=== PATIENT | male | born 1955 | race Caucasian/White ===

== ENCOUNTER 2018-06-16 05:55 | Emergency (ER) | payer OTHER ==
[~2018-06-16] VITALS: Ht 180.3 cm; Wt 111.1 kg
[~2018-06-16 05:55] MED LIST: CETI10TA84 PO; GLC500 PO; LISI-725 PO; OXYC-57 PO
[2018-06-16 05:59] VITALS: TEMP 36.7; Ht 180.3 cm; Wt 111.1 kg
[2018-06-16] MEDS ORDERED: ONDANSETRON INJ 2 MG/ML 2 ML VIAL IV STA (06:12)
[2018-06-16] MEDS ORDERED: FENTANYL CITRATE INJ 50 MCG/1 ML 2 ML VIAL IV STA (06:12)
[2018-06-16] MEDS ORDERED: SODIUM CHLORIDE 0.9% 1000ML 1,000 ML IV STA ×2 (06:12)
[2018-06-16] MEDS ORDERED: LISI40TA PO (06:19)
[2018-06-16] MEDS ORDERED: ATOR-22 PO (06:19)
[2018-06-16] MEDS ORDERED: GLC/500 PO (06:19)
[2018-06-16] MEDS ORDERED: AMLO10TA3 PO (06:19)
[2018-06-16 06:20] LABS: BASO % 0.2 %; BASO ABS # 0.03 K/uL (0-0.2); EOS % 2.3 %; EOS ABS # 0.33 K/uL (0-0.5); HEMATOCRIT 44.3 % (42-52); HEMOGLOBIN 15.3 g/dL (14.0-18.0); IG# 0.05 K/uL (0.00-0.02); LYMPH % 21.8 %; LYMPH ABS # 3.11 K/uL (1.2-3.4); MEAN CELL VOLUME 83.7 fL (80-100); MEAN CORPUSCULAR HEMOGLOBIN 28.9 pg (25-34); MEAN CORPUSCULAR HGB CONC 34.5 g/dl (32-36); MEAN PLATELET VOLUME 11.2 fL (7.4-10.4); MONO % 6.7 %; MONO ABS # 0.96 K/uL (0.11-0.59); NEUT % 68.6 %; NEUT ABS # 9.79 K/uL (1.4-6.5); PLATELET COUNT 223 K/uL (130-400); RED CELL DISTRIBUTION WIDTH CV 13.3 % (11.5-14.5); RED CELL DISTRIBUTION WIDTH SD 39.9 fL (36.4-46.3); WHITE BLOOD COUNT 14.27 K/uL (4.8-10.8)
[2018-06-16] MEDS ORDERED: DULA1INJ INJ (06:20)
--- NOTE | 2018-06-16 06:25 | EMERGENCY ROOM VISIT NOTE ---
History Report prepared by Leo: Tavares Nicole Under the Supervision of: Dr. Erum Smith D.O. First contact with patient: 06:03 Chief Complaint: VOMITING Stated Complaint: VOMITING FOR 6DYS History of Present Illness The patient is a 63 year old male who presents to the Emergency Room with complaints of persistent vomiting that began last , 4 days ago. The patient states that his sugars were uncontrolled last week, so he received a shot of Trulicity from his primary care office on Friday of last week. morning at 0100 the patient began vomiting. The patient's at bedside notes that on Friday, 3 days ago, his vomiting was nearly constant and he did not keep anything down. He is also complaining of upper abdominal pain and sweats/chills along with the emesis. He denies any diarrhea or urinary issues. 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 The patient has a history of cholecystectomy. Source of History: patient Onset: 4 days ago Position: abdomen Quality: other (Vomiting) Timing: other (persistent) Associated Symptoms: No diarrhea, No urinary symptoms Review of Systems See HPI for pertinent positives & negatives. A total of 10 systems reviewed and were otherwise negative. Past Medical & Surgical Hx of Alcoholic Cirrhosis, Hepatitis C, and Kidney mass. Family History Cancer Social History Smoking Status: Former Smoker Alcohol Use: other (Former alcoholic) Marital Status: Housing Status: lives with significant other Current/Historical Medications Scheduled Amlodipine (Norvasc), 10 MG PO DAILY Atorvastatin (Lipitor), 20 MG PO DAILY Dulaglutide (Trulicity), 0.75 MG INJ WK Lisinopril (Zestril), 40 MG PO DAILY Metformin Hcl (Glucophage), 500 MG PO BID Ondasetron Odt (Zofran Odt), 4 MG SL Q6H Ranitidine Hcl (Zantac), 150 MG PO BID Allergies Coded Allergies: No Known Allergies (Verified , 06/16/18) Physical Exam Vital Signs Date Time Temp Pulse Resp B/P (MAP) Pulse Ox O2 Delivery O2 Flow Rate FiO2 06/16/18 08:12 79 17 151/90 96 06/16/18 07:24 79 17 151/90 96 Room Air 06/16/18 06:20 70 18 174/112 94 Room Air 06/16/18 06:10 98 06/16/18 05:59 36.7 117 18 151/102 94 Room Air Physical Exam General: Patient appears quite uncomfortable at this time. HEENT: Head - normocephalic and atraumatic Pupils are equal, round, and reactive to light. Extraocular eye muscles are intact, and sclera are anicteric. Nose - moist nasal mucosa without discharge. Mouth - moist buccal mucosa. Oropharynx is nonerythematous and there is no tonsillar exudate or edema noted. Neck: Supple; no JVD, nuchal rigidity, cervical lymphadenopathy. Heart: Tachycardic rate and regular rhythm. There is a normal S1 and S2 with no murmurs, clicks, or gallops appreciated. Lungs: Clear to auscultation bilaterally with no wheezes, rales, or rhonchi. Abdomen: Soft, with pain on palpation of epigastrium and LUQ, distended, with good bowel sounds. There are no palpable pulsatile masses or hepatosplenomegaly. There is no guarding, rigidity, or rebound noted. Extremities: No evidence of cyanosis, clubbing, or edema. There are easily palpable peripheral pulses. Skin: warm and dry with good turgor and no rashes. Medical Decision & Procedures Laboratory Results 06/16/18 06:05 Red Blood Count 5.29, Mean Corpuscular Volume 83.7, Mean Corpuscular Hemoglobin 28.9, Mean Corpuscular Hemoglobin Concent 34.5, Mean Platelet Volume 11.2, Neutrophils (%) (Auto) 68.6, Lymphocytes (%) (Auto) 21.8, Monocytes (%) (Auto) 6.7, Eosinophils (%) (Auto) 2.3, Basophils (%) (Auto) 0.2, Neutrophils # (Auto) 9.79, Lymphocytes # (Auto) 3.11, Monocytes # (Auto) 0.96, Eosinophils # (Auto) 0.33, Basophils # (Auto) 0.03 06/16/18 06:05 Test 06/16/18 06:05 06/16/18 06:15 White Blood Count 14.27 K/uL (4.8-10.8) Red Blood Count 5.29 M/uL (4.7-6.1) Hemoglobin 15.3 g/dL (14.0-18.0) Hematocrit 44.3 % (42-52) Mean Corpuscular Volume 83.7 fL (80-100) Mean Corpuscular Hemoglobin 28.9 pg (25-34) Mean Corpuscular Hemoglobin Concent 34.5 g/dl (32-36) Platelet Count 223 K/uL (130-400) Mean Platelet Volume 11.2 fL (7.4-10.4) Neutrophils (%) (Auto) 68.6 % Lymphocytes (%) (Auto) 21.8 % Monocytes (%) (Auto) 6.7 % Eosinophils (%) (Auto) 2.3 % Basophils (%) (Auto) 0.2 % Neutrophils # (Auto) 9.79 K/uL (1.4-6.5) Lymphocytes # (Auto) 3.11 K/uL (1.2-3.4) Monocytes # (Auto) 0.96 K/uL (0.11-0.59) Eosinophils # (Auto) 0.33 K/uL (0-0.5) Basophils # (Auto) 0.03 K/uL (0-0.2) RDW Standard Deviation 39.9 fL (36.4-46.3) RDW Coefficient of Variation 13.3 % (11.5-14.5) Immature Granulocyte % (Auto) 0.4 % Immature Granulocyte # (Auto) 0.05 K/uL (0.00-0.02) Prothrombin Time 10.2 SECONDS (9.0-12.0) Prothromb Time International Ratio 1.0 (0.9-1.1) Activated Partial Thromboplast Time 23.3 SECONDS (21.0-31.0) Partial Thromboplastin Ratio 0.9 Anion Gap 10.0 mmol/L (3-11) Est Creatinine Clear Calc Drug Dose 88.2 ml/min Estimated GFR () 82.9 Estimated GFR (Non- 71.6 BUN/Creatinine Ratio 14.5 (10-20) Calcium Level 8.6 mg/dl (8.5-10.1) Total Bilirubin 1.2 mg/dl (0.2-1) Direct Bilirubin 0.3 mg/dl (0-0.2) Aspartate Amino Transf (AST/SGOT) 25 U/L (15-37) Alanine Aminotransferase (ALT/SGPT) 48 U/L (12-78) Alkaline Phosphatase 128 U/L (45-117) Total Protein 8.4 gm/dl (6.4-8.2) Albumin 3.4 gm/dl (3.4-5.0) Lipase 158 U/L (73-393) Urine Color YELLOW Urine Appearance CLEAR (CLEAR) Urine pH 5.5 (4.5-7.5) Urine Specific [place] 1.020 (1.000-1.030) Urine Protein TRACE (NEG) Urine Glucose (UA) 1+ (NEG) Urine Ketones TRACE (NEG) Urine Occult Blood NEG (NEG) Urine Nitrite NEG (NEG) Urine Bilirubin NEG (NEG) Urine Urobilinogen NEG (NEG) Urine Leukocyte Esterase NEG (NEG) Urine RBC 0-4 /hpf (0-4) Urine WBC 1-5 /hpf (0-5) Urine Epithelial Cells 0-5 /lpf (0-5) Urine Bacteria NEG (NEG) Urine Mucus PRESENT (NONE PRSENT) Urine Sperm PRESENT (NONE PRSENT) Laboratory results per my review. Medications Administered Medications (Trade) Dose Ordered Sig/Prabhjot Route Start Time Stop Time Status Last Admin Dose Admin Ondansetron HCl (Zofran Inj) 4 mg NOW STAT IV 06/16/18 06:12 06/16/18 06:14 DC 06/16/18 06:18 4 MG Sodium Chloride 1,000 ml @ 999 mls/hr Q1H1M STAT IV 06/16/18 06:12 06/16/18 07:12 DC 06/16/18 06:21 999 MLS/HR Sodium Chloride 1,000 ml @ 250 mls/hr Q4H STAT IV 06/16/18 06:12 06/16/18 09:25 DC 06/16/18 07:33 250 MLS/HR Fentanyl Citrate (Fentanyl Inj) 50 mcg NOW STAT IV 06/16/18 06:12 06/16/18 06:14 DC 06/16/18 06:21 50 MCG Procedure Medications Ordered: Fentanyl, Sodium Chloride, Zofran ECG Per My Interpretation Indication: vomiting Rate (beats per minute): 81 Rhythm: normal sinus Findings: no acute ischemic change, no ectopy, other (No ST segment changes) ED Course 0606: Past medical records reviewed. The patient was evaluated in room A10. A complete history and physical exam was performed. An IV lock was initiated and labs are drawn as above. 0612: Ordered Fentanyl Citrate 50 mcg IV, Sodium Chloride 1000 mL @ 250 mL/hr IV , Sodium Chloride 1000 mL @ 999 mL/hr IV, Zofran 4 mg IV. The patient will go for CT scan of the abdomen/pelvis to further evaluate for pancreatitis or other findings in the epigastrium. 0723: The case was signed out to Dr. Leon at change of shift awaiting the CAT scan. The patient is currently comfortable at this time. He has no longer nauseated and is not vomiting Medical Decision The patient is a 63 year old male who presents to the Emergency Department with complaints of persistent vomiting and abdominal pain. Differential diagnosis includes SBO, pancreatitis, ulcerative disease, gastritis , colitis, and cholecystis. Laboratory results were reviewed and show; white count of 14.2, stable H&H, glucose of 266, normal lipase, total bilirubin of 1.2, direct bilirubin of 0.3, coags normal. Urinalysis was reviewed and shows; trace protein, trace ketones, 1+ glucose. This is a 63-year-old male patient with a history of hepatitis C and cirrhosis who presents to the emergency department with significant epigastric pain and vomiting. The patient had his first dose of trulicity 1 week ago. Since that time, he has had intermittent episodes of vomiting. He became more concerned tonight when he had increased epigastric pain. The patient received IV Zofran here in the emergency department along with some fentanyl and is much more comfortable at this time. He is awaiting CT scan of the abdomen/pelvis. Case was signed out to Dr. Leon at change of shift. Medication Reconcilliation Current Medication List: was personally reviewed by me Blood Pressure Screening Patient's blood pressure: Elevated blood pressure Blood pressure disposition: Elevated BP felt to be situational Impression Primary Impression: Epigastric pain Additional Impression: Vomiting Scribe Attestation The scribe's documentation has been prepared under my direction and personally reviewed by me in its entirety. I confirm that the note above accurately reflects all work, treatment, procedures, and medical decision making performed by me. Departure Information Dispostion Still a Patient Prescriptions Ranitidine Hcl (ZANTAC) 150 Mg Tab 150 MG PO BID for 30 Days, #60 TAB Prov: Luke Leon MD 06/16/18 Ondasetron Odt (ZOFRAN ODT) 4 Mg Tab 4 MG SL Q6H for Nausea, #6 TAB Prov: Luke Leon MD 06/16/18 Referrals No Doctor, Assigned (PCP) Patient Instructions My [facility] Problem Qualifiers Additional Impression: Vomiting Vomiting type: unspecified Vomiting Intractability: non-intractable Nausea presence: with nausea Qualified Codes: R11.2 - Nausea with vomiting, unspecified
[2018-06-16] MEDS ORDERED: OPTIRAY 320 IV PRN (06:30)
[2018-06-16 06:32] LABS: PTT PATIENT 23.3 SECONDS (21.0-31.0)
[2018-06-16 06:35] LABS: ALBUMIN 3.4 gm/dl (3.4-5.0); CALCIUM 8.6 mg/dl (8.5-10.1); CREATININE 1.1 mg/dl (0.60-1.40); POTASSIUM 3.8 mmol/L (3.5-5.1); TOTAL PROTEIN 8.4 gm/dl (6.4-8.2)
--- NOTE | 2018-06-16 07:11 | EMERGENCY ROOM VISIT NOTE ---
ED Visit Note Received poatient in sign out, pt has been vomiting for 6 days after starting Trulicity. History and Physical verified by me. Pt awaiting CT scan. Upon receiving CT scan I discussed my findings with the patient. He has been following up with [facility] u[facility] in [place] for this kidney cyst. I am concerned though at the size along with the lymph node. Because of this I did discuss the case with the urologist Dr. Dewitt chief hydroelectric station operator. Dr. Dewitt would like to see the patient in the office. I did discuss this with case management to get the patient set up. The patient is feeling better after receiving Zofran and a normal saline bolus. I will trial oral fluids. I recommended he stop taking the Trulicity. I also recommended a clear liquid diet for the next 48 hours along with Zantac and 5 mL's of Maalox before every meal. Patient is going to follow-up with Dr. Vargas's office for his diabetes.
--- NOTE | 2018-06-16 07:36 | DIAGNOSTIC IMAGING REPORT ---
CT ABD/PELVIS IV CONTRAST ONLY CLINICAL HISTORY: Epigastric pain COMPARISON STUDY: None. TECHNIQUE: Following the IV administration of 119 mL of Optiray-320, CT scan of the abdomen and pelvis was performed from the lung bases to the proximal femurs. Images are reviewed in the axial, sagittal, and coronal planes. IV contrast was administered without complication. A dose lowering technique was utilized adhering to the principles of ALARA. CT DOSE: 1109.65 mGycm FINDINGS: Lower chest: There is a hiatal hernia. Liver: There is too small to characterize 8 mm hypodensity within the right hepatic lobe. There is a to small to characterize 5 mm hypodensity within the left hepatic lobe. The portal vein appears patent. Gallbladder: Surgically absent Spleen: Normal in size and attenuation. Pancreas: Unremarkable. Adrenal glands: Unremarkable. Kidneys: There is 3.5 cm solid right renal mass. This is viewed as highly suspicious for renal cell carcinoma. There is no hydronephrosis. Bowel: There are no transition zones indicate bowel obstruction. The appendix appears normal. There is colonic diverticulosis. There are no acute peridiverticular inflammatory changes. Peritoneum: There is no intraperitoneal free air or abdominal ascites. Vasculature: The abdominal aorta is normal in course and caliber. Adenopathy: There is a mildly enlarged retroduodenal preaortic lymph node measuring 18 x 11 mm. Ran hepatis and celiac lymph nodes are the upper limits of normal in size. Pelvic viscera: The bladder, and pelvic viscera are unremarkable. Skeletal structures: There is bilateral L5 spondylolysis. No destructive lesions are visualized. IMPRESSION: 1. 3.5 cm solid right renal mass. This is viewed as suspicious for a renal cell carcinoma and urological consultation is recommended 2. No evidence of bowel obstruction. No evidence of free air 3. Normal appendix. No evidence of acute diverticulitis 4. Hiatal hernia 5. Mildly enlarged preaortic lymph node. Electronically signed by: Sandeep Rodriguez M.D. 06/16/2018 7:35 AM Dictated Date/Time: 06/16/2018 7:22 AM
[2018-06-16] MEDS ORDERED: RANI150T3 PO (07:58)
[2018-06-16] MEDS ORDERED: ONDA4TAB10 SL (07:58)
[2018-06-16 08:12] VITALS: BP 151/90; PULSE 79; O2SAT 96
== END 2018-06-16 08:13 | disposition home or self-care (01) ==
LOC: C.EDB 05:56 → C.EDA 08:13
DX: R10.13 Epigastric pain (principal); R11.2 Nausea with vomiting, unspecified; K70.30 Alcoholic cirrhosis of liver without ascites; Z79.84 Long term (current) use of oral hypoglycemic drugs; Z79.899 Other long term (current) drug therapy; F10.21 Alcohol dependence, in remission; Z87.891 Personal history of nicotine dependence

== ENCOUNTER 2021-12-16 09:30 | Inpatient (IN) ==
[2021-12-16] MEDS ORDERED: SODIUM CHLORIDE 0.9% 500 ML IV ONE (09:47)
[2021-12-16] MEDS ORDERED: DAPTOmycin 300 MG in SYRINGE 0 ML IV ONE (09:47)
[2021-12-16] MEDS ORDERED: cefTRIAXone SODIUM 2,000 MG/70 ML BAG IV STA (09:47)
--- NOTE | 2021-12-16 09:57 | Emergency Department Note ---
History of Present Illness General Chief complaint: Illness Stated complaint: R LEG RASH, PAIN Time Seen by Provider: 12/16/21 09:40 History of Present Illness Maximum Pain Intensity: 9 66-year-old male presents to the ED with a chief complaint of increasing redness in his right leg as well as some swelling. The patient has had some fevers since Friday. His redness started on Friday is a small area in the distal right medial leg. He states that it was about the size of the palm of the hand. The redness has become circumferential in the lower extremity and there is a red streak with tenderness going up to the right groin. He had a fever this morning. His temperature has been ranging from 102.5-100.5. The patient states that he had some nausea and vomiting as well as some chills on Friday. He states that Tylenol does make him feel slightly better. Because of the progres sive worsening, he presented to the ED this morning for evaluation. Home Medications Medication Instructions Recorded Confirmed Type atorvastatin 20 mg tablet 20 mg PO QAM 07/28/18 12/16/21 History buprenorphine 8 mg-naloxone 2 mg 0.5 tab SUBLINGUAL WK 07/28/18 12/16/21 History sublingual tablet glimepiride 2 mg tablet 2 mg PO QAM 07/28/18 12/16/21 History lisinopril 40 mg tablet 40 mg PO QAM 07/28/18 12/16/21 History metformin 500 mg tablet 500 mg PO BID 07/28/18 12/16/21 History ondansetron 4 mg disintegrating 4 mg PO Q8 PRN 08/11/18 12/16/21 History tablet triamcinolone acetonide 0.1 % 1 applic TOPICAL BID PRN 04/02/19 12/16/21 History topical cream omeprazole 40 mg capsule,delayed 40 mg PO DAILY #90 cap 06/11/19 12/16/21 Rx release Allergies Allergy/AdvReac Type Severity Reaction Status Date / Time adhesive Allergy Mild Rash Verified 12/16/21 11:45 cat dander Allergy Mild Watery Eye Verified 12/16/21 11:45 tree and shrub pollen Allergy Mild Watery Eye Verified 12/16/21 11:45 Past Med/Surg History Medical History (Updated 12/16/21 @ 09:57 by Luke Christianson DO) Alcoholic cirrhosis of liver Chronic obstructive pulmonary disease no inhalers Degenerative joint disease Diabetes mellitus, type 2 Former smoker GERD (gastroesophageal reflux disease) Hepatitis C History of anesthesia reaction "coughed during knee replacement" Hyperlipidemia Hypertension Osteoarthritis Renal cell carcinoma of right kidney diagnosed 07/30/18 Surgical History History of cardiac cath 2002 @ [facility]--no stent, no complex manager History of cholecystectomy History of esophagogastroduodenoscopy (EGD) History of open reduction and internal fixation (ORIF) procedure right ankle--pins/screws History of total right knee replacement (TKR) Hx of toe surgery L great toe--osteomyletis Status post biopsy of kidney malignant--renal cell carcinoma Status post cryoablation 2018 to right kidney Family History Other Family history unknown No family history of adverse response to anesthesia Social History Smoking Status: Current every day smoker Tobacco Type: Cigarettes Cigarettes Per Day: 10-30; Second Hand Exposure: Yes ( smokes); Hx Alcohol Use: No Hx Substance Use: Yes (every day) Last Used Substance: Hours (ago) Last Used Substance Other:: 04/01/19 Preferred Language: Hebrew Communication Ability: Effective 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: No Beliefs That Will Affect Care: None Current Living Situation: Spouse Feels Safe at Home: Yes Assistive Devices: None Review of Systems A total of 10 systems reviewed and were otherwise negative Physical Exam Vital Signs Vital Signs - 24 hr 12/16/21 09:33 12/16/21 10:38 12/16/21 11:34 Temperature 36.6 C Temperature Source Temporal Artery Scan Pulse Rate 105 H Pulse Rate [Apical] 80 82 Pulse Rhythm Regular Pulse Strength Normal Respiratory Rate 18 16 14 Respiratory Effort / Characteristics Non-Labored Spontaneous Non-Labored Respiratory Depth Normal Respiratory Pattern Regular Blood Pressure 153/86 H Blood Pressure [Left Arm] 119/71 137/75 Blood Pressure Mean 108 Blood Pressure Mean [Left Arm] 87 95 Pulse Oximetry 96 98 97 Oxygen Delivery Method Room Air Room Air Sepsis Recent Fever Within 48 Hours Yes Sepsis New/Unexplained Change in Mental Status No Sepsis Action Taken by Nursing No Action Required CONSTITUTIONAL/VITAL SIGNS: Reviewed / noted above. GENERAL: Non-toxic in appearance. INTEGUMENTARY: Warm, dry, and Ginger Blue. HEAD: Normocephalic. EYES: without scleral icterus or trauma. ENT/OROPHARYNX: clear and moist. LYMPHADENOPATHY/NECK: Is supple without lymphadenopathy or meningismus. RESPIRATORY: Clear to auscultation bilaterally. No increased work of breathing. CARDIOVASCULAR: Regular rate and rhythm. GI/ABDOMEN: Soft and nontender. No organomegaly or pulsatile mass. EXTREMITIES: Warm and well perfused. The patient has some redness to the distal right lower extremity from the knee down to the ankle. No clear nidus for infection. There is a red streak that travels up the medial aspect of the right leg into the groin. He has some tenderness to palpation increased warmth of the area as well. No discharge or open wounds BACK: No CVA tenderness. NEUROLOGICAL: Intact without focal deficits. PSYCHIATRIC: normal affect. MUSCULOSKELETAL: Normally developed with good muscle tone. TRIAGE NURSING DOCUMENTATION REVIEWED. Course Administered Medications Discontinued Medications Daptomycin 300 mg/ Syringe 6 mls @ 3 mls/min IV NOW ONE; Protocol Stop: 12/16/21 09:48 Last Admin: 12/16/21 11:31 Dose: 3 mls/min Documented by: [id number] Ceftriaxone Sodium (Rocephin) 2,000 mg in 70 mls @ 140 mls/hr IV NOW STA Stop: 12/16/21 10:16 Last Infusion: 12/16/21 11:10 Dose: 0 mls/hr Documented by: [id number] Admin: 12/16/21 10:36 Dose: 140 mls/hr Documented by: [id number] Sodium Chloride (Nss) 500 mls @ 999 mls/hr IV .Q31M ONE Stop: 12/16/21 10:17 Last Infusion: 12/16/21 11:10 Dose: 0 mls/hr Documented by: [id number] Admin: 12/16/21 10:36 Dose: 999 mls/hr Documented by: [id number] Medical Decision Making Differential Diagnosis Cellulitis, abscess, MRSA infection, DVT, necrotizing fasciitis, dermatitis, drug eruption, allergic reaction, as well as other pathologies. Medical Records Attestation: I reviewed the patient's medical records. Home Medications Current Medication List: was personally reviewed by me Laboratory Data Attestation: I reviewed the patient's lab results. Result diagrams: 12/16/21 10:07 12/16/21 10:43 Lab Results 12/16/21 12/16/21 12/16/21 Range/Units 10:07 10:07 10:40 WBC 14.89 H (4.8-10.8) K/uL RBC 4.65 L (4.7-6.1) M/uL Hgb 13.0 L (14.0-18.0) g/dL Hct 39.6 L (42-52) % MCV 85.2 (80-100) fL MCH 28.0 (25-34) pg MCHC 32.8 (32-36) g/dL RDW Std Deviation 48.8 H (36.4-46.3) fL RDW Coeff of Mannie 15.8 H (11.5-14.5) % Plt Count 169 (130-400) K/uL MPV 11.8 H (7.4-10.4) fL Immature Gran % (Auto) 0.4 % Neut % (Auto) 78.9 % Lymph % (Auto) 13.7 % [place] % (Auto) 6.6 % Eos % (Auto) 0.3 % Baso % (Auto) 0.1 % Neut # (Auto) 11.75 H (1.4-6.5) K/uL Lymph # (Auto) 2.04 (1.2-3.4) K/uL [place] # (Auto) 0.98 H (0.11-0.59) K/uL Eos # (Auto) 0.04 (0-0.5) K/uL Baso # (Auto) 0.02 (0-0.2) K/uL Immature Gran # (Auto) 0.06 H (0.00-0.02) K/uL Sodium 133 L (136-145) mmol/L Potassium (3.5-5.1) mmol/L Chloride 104 (98-107) mmol/L Carbon Dioxide 25 (21-32) mmol/L Anion Gap 4 (3-11) BUN 11 (6-23) mg/dl Creatinine 1.00 (0.6-1.4) mg/dl Est Cr Clr Drug Dosing 86.6 ml/min Est GFR ( Amer) 91.1 ml/min Est GFR (Non-Af Amer) 78.6 ml/min BUN/Creatinine Ratio 11.0 (10-20) Glucose 141 H (70-99(Fasting)) mg/dl Calcium 8.7 (8.5-10.1) mg/dl SARS-CoV-2, RNA, NAAT NEGATIVE (NEGATIVE) 12/16/21 Range/Units 10:43 WBC (4.8-10.8) K/uL RBC (4.7-6.1) M/uL Hgb (14.0-18.0) g/dL Hct (42-52) % MCV (80-100) fL MCH (25-34) pg MCHC (32-36) g/dL RDW Std Deviation (36.4-46.3) fL RDW Coeff of Mannie (11.5-14.5) % Plt Count (130-400) K/uL MPV (7.4-10.4) fL Immature Gran % (Auto) % Neut % (Auto) % Lymph % (Auto) % [place] % (Auto) % Eos % (Auto) % Baso % (Auto) % Neut # (Auto) (1.4-6.5) K/uL Lymph # (Auto) (1.2-3.4) K/uL [place] # (Auto) (0.11-0.59) K/uL Eos # (Auto) (0-0.5) K/uL Baso # (Auto) (0-0.2) K/uL Immature Gran # (Auto) (0.00-0.02) K/uL Sodium (136-145) mmol/L Potassium 3.8 (3.5-5.1) mmol/L Chloride (98-107) mmol/L Carbon Dioxide (21-32) mmol/L Anion Gap (3-11) BUN (6-23) mg/dl Creatinine (0.6-1.4) mg/dl Est Cr Clr Drug Dosing ml/min Est GFR ( Amer) ml/min Est GFR (Non-Af Amer) ml/min BUN/Creatinine Ratio (10-20) Glucose (70-99(Fasting)) mg/dl Calcium (8.5-10.1) mg/dl SARS-CoV-2, RNA, NAAT (NEGATIVE) Imaging Data Radiologist's Impression: Venous Doppler Study 12/16/21 09:53 US venous doppler LE RT HISTORY: 66 years-old Male pain . Pain and swelling of the right lower leg COMPARISON: None TECHNIQUE: Multiple real-time sonographic images of the right lower extremity deep venous structures were obtained assessing grayscale appearance, color and spectral flow. FINDINGS: Normal flow, compressibility, phasicity and augmentation. Morphologically normal-appearing right inguinal chain lymph nodes measure up to 3.3 x 2.1 x 1.4 cm, nonspecific. IMPRESSION: No sonographic evidence of deep venous thrombosis. ACT 112: Negative or not required by law. The above report was generated using voice recognition software. It may contain grammatical, syntax or spelling errors. Electronically signed by: Justin Garcia M.D. 12/16/2021 11:23 AM ECG Data Attestation: I personally reviewed and interpreted this ECG as follows: MDM Narrative Patient presents with right leg pain and increasing redness over the past several days as well as findings suggestive of a lymphangitis heading up to the right groin area from the medial leg. He has had some fevers although he is not febrile here. The patient has a white blood cell count of 14.8. Chemistry panel was unremarkable. Ultrasound of the leg did not show DVT. The patient was treated with IV fluids, IV Rocephin and IV daptomycin. He will be seen by the hospitalist for further inpatient evaluation and care. Impression & Plan Cellulitis of leg, right Discharge Plan Visit Data Chief Complaint: Illness Stated Complaint: R LEG RASH, PAIN ED Provider: Luke Christianson Problem: Cellulitis of leg, right Patient Disposition: Being Evaluated by Hospitalist Forms Stand Alone Forms: My [facility] Prescriptions Prescriptions: No Action omeprazole 40 mg capsule,delayed release(DR/EC) 40 mg PO DAILY Qty: 90 RF: 3 metformin 500 mg Tablet 500 mg PO BID RF: 0 atorvastatin 20 mg Tablet 20 mg PO QAM RF: 0 glimepiride 2 mg Tablet 2 mg PO QAM RF: 0 lisinopril 40 mg Tablet 40 mg PO QAM RF: 0 buprenorphine-naloxone 8-2 mg tablet, sublingual 0.5 tab Sublingual WK RF: 0 ondansetron 4 mg Tablet,Disintegrating 4 mg PO Q8 PRN (Reason: Nausea) RF: 0 triamcinolone acetonide 0.1 % Cream 1 applic TOPICAL BID PRN (Reason: Rash) RF: 0 Referrals Referrals: Bill Haider MD [Primary Care Provider] -
[2021-12-16 10:14] LABS: Basophils # (auto) 0.02 K/uL (0-0.2); Basophils % (auto) 0.1 %; Eosinophils # (auto) 0.04 K/uL (0-0.5); Eosinophils % (auto) 0.3 %; Hematocrit (blood only) 39.6 % (42-52); Immature Granulocytes # (auto) 0.06 K/uL (0.00-0.02); Immature Granulocytes % (auto) 0.4 %; Lymphocytes # (auto) 2.04 K/uL (1.2-3.4); Lymphocytes % (auto) 13.7 %; Mean Corpuscular Hgb Conc 32.8 g/dL (32-36); Mean Corpuscular Volume 85.2 fL (80-100); Mean Platelet Volume 11.8 fL (7.4-10.4); Monocytes # (auto) 0.98 K/uL (0.11-0.59); Monocytes % (auto) 6.6 %; Neutrophils # (auto) 11.75 K/uL (1.4-6.5); Neutrophils % (auto) 78.9 %; Platelet Count 169 K/uL (130-400); RDW Coefficient of Variation 15.8 % (11.5-14.5); RDW Standard Deviation 48.8 fL (36.4-46.3); Red Blood Count 4.65 M/uL (4.7-6.1); White Blood Count 14.89 K/uL (4.8-10.8)
[2021-12-16 10:38] LABS: Calcium 8.7 mg/dl (8.5-10.1); Creatinine Clr Calc Pharmacy 86.6 ml/min; Est GFR (African American) 91.1 ml/min; Est GFR (Non-African American) 78.6 ml/min
--- NOTE | 2021-12-16 11:24 | Ultrasound Report ---
US venous doppler LE RT HISTORY: 66 years-old Male pain . Pain and swelling of the right lower leg COMPARISON: None TECHNIQUE: Multiple real-time sonographic images of the right lower extremity deep venous structures were obtained assessing grayscale appearance, color and spectral flow. FINDINGS: Normal flow, compressibility, phasicity and augmentation. Morphologically normal-appearing right ingu inal chain lymph nodes measure up to 3.3 x 2.1 x 1.4 cm, nonspecific. IMPRESSION: No sonographic evidence of deep venous thrombosis. ACT 112: Negative or not required by law. The above report was generated using voice recognition software. It may contain grammatical, syntax o r spelling errors. Electronically signed by: Justin Garcia M.D. 12/16/2021 11:23 AM
--- NOTE | 2021-12-16 12:08 | History & Physical Report ---
Date of Service December 16, 2021 Assessment & Plan (1) Cellulitis of leg, right: Plan: Sepsis, RLE Cellulitis - Meets SIRS criteria Patient is 66-year-old male with PMH HTN, HLD, DM II, hepatitis C, right renal cell carcinoma status post renal cryoablation GERD presented to ER with complaint of fever and right leg weakness x 2 days. Patient reports 2 days ago had onset of fever up to 102F along with chills then noted RLE erythema which has increased. In ER patient afebrile, initial pulse 105 down to 82, other vitals stable, WBC: 14, negative COVID-19 NAAT. Venous Doppler right lower leg negative for DVT. In ER was given Rocephin, daptomycin, 500 mL NSS Blood cultures pending Rocephin, vancomycin IVF MRSA swab, if negative will d/c vanco CBC, BMP in am (2) Diabetes mellitus, type 2: Plan: A1c: 7.4 in 12/13/2021 Hold glimepiride, Metformin NovoLog sliding scale per protocol. Patient is very hesitant about insulin use. Depending on BSG's may need to add carb coverage and/or basal insulin Diabetic diet (3) Hypertension: Plan: Continue amlodipine, lisinopril (4) Hyperlipidemia: Plan: Continue atorvastatin (5) Renal cell carcinoma of right kidney: Plan: History of right renal cell carcinoma s/p renal cryoablation Recent follow-up MRI in 05/2021 no evidence for recurrent neoplastic disease (6) GERD (gastroesophageal reflux disease): Plan: Continue PPI (7) Tobacco use: Plan: Trying to quit, down to smoking 5 cigarettes a day Encouraged patient continued attempts at cessation Denies nicotine patch DVT Prophylaxis Lovenox SQ Follows with Dr Haider for routine care Pt was seen and care coordinated with Dr Lancaster. See addendum History of Present Illness Chief Complaint: right leg redness Primary Care Provider: Bill Haider MD Patient is 66-year-old male with PMH HTN, HLD, DM II, hepatitis C, right renal cell carcinoma status post renal cryoablation GERD presented to ER with complaint of fever and right leg weakness x 2 days. Patient reports 2 days ago had onset of fever up to 102F along with chills. He was initially concerned he had Covid-19 so had outpatient Covid test which is still pending. Patient states later that day noted some discomfort to right lower leg and noticed had area of erythema to right lower leg approximately the size of his palm. Since has progressed with erythema progressing up the leg to his knee and today noted red streaking up his medial thigh. Reports leg is very tender and warm. He has been using Tylenol and ibuprofen for fever. Reports some nausea and had 2 episodes of vomiting. Denies history of cellulitis. Denies known injury or trauma to the area. Patient states yesterday he did scratch lower leg and had scratched off a scab. Denies history of diabetic ulcers. Denies history of MRSA. Denies ill contacts. History right TKA in 2002. Denies hematemesis, diarrhea, constipation, MCKEON, syncope, vision changes, neck pain, CP, SOB, orthopnea, palpitations, cough, sore throat, choking, otalgia, rhinorrhea, abdominal pain, paresthesias, weakness, other rashes, urinary symptoms. In ER patient afebrile, initial pulse 105 down to 82, other vitals stable, WBC: 14, negative COVID-19 NAAT. Venous Doppler right lower leg negative for DVT. In ER was given Rocephin, daptomycin, 500 mL NSS Allergies Allergy/AdvReac Type Severity Reaction Status Date / Time adhesive Allergy Mild Rash Verified 12/16/21 11:45 cat dander Allergy Mild Watery Eye Verified 12/16/21 11:45 tree and shrub pollen Allergy Mild Watery Eye Verified 12/16/21 11:45 Home Medications Medication Instructions Recorded Confirmed Type atorvastatin 20 mg tablet 20 mg PO QAM 07/28/18 12/16/21 History glimepiride 2 mg tablet 2 mg PO QAM 07/28/18 12/16/21 History lisinopril 40 mg tablet 40 mg PO QAM 07/28/18 12/16/21 History metformin 500 mg tablet 500 mg PO BID 07/28/18 12/16/21 History triamcinolone acetonide 0.1 % 1 applic TOPICAL BID PRN 04/02/19 12/16/21 History topical cream amlodipine 10 mg tablet 10 mg PO DAILY 12/16/21 12/16/21 History pantoprazole 40 mg tablet,delayed 40 mg PO HS 12/16/21 12/16/21 History release Past Med/Surg History Medical History Chronic obstructive pulmonary disease no inhalers Degenerative joint disease Diabetes mellitus, type 2 GERD (gastroesophageal reflux disease) Hepatitis C History of anesthesia reaction "coughed during knee replacement" Hyperlipidemia Hypertension Osteoarthritis Renal cell carcinoma of right kidney diagnosed 07/30/18 Tobacco use Surgical History History of cardiac cath 2002 @ [place]--no stent, 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 History of cholecystectomy History of esophagogastroduodenoscopy (EGD) History of open reduction and internal fixation (ORIF) procedure right ankle--pins/screws History of total right knee replacement (TKR) Hx of toe surgery L great toe--osteomyletis Status post biopsy of kidney malignant--renal cell carcinoma Status post cryoablation 2018 to right kidney Family History (Updated 12/16/21 @ 12:57 by Ellen Banda PA-C) Father Cancer Other Family history unknown No family history of adverse response to anesthesia Social History (Updated 12/16/21 @ 12:57 by Ellen Banda PA-C) Smoking Status: Current every day smoker Tobacco Type: Cigarettes Cigarettes Per Day: 5; Second Hand Exposure: Yes ( smokes); Hx Alcohol Use: No Hx Substance Use: Yes Prescribed Medications: Marijuana Last Used Substance: Hours (ago) Last Used Substance Other:: 04/01/19 Preferred Language: Icelandic Communication Ability: Effective 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 Beliefs That Will Affect Care: None Current Living Situation: Spouse Feels Safe at Home: Yes Safety Concerns: Feels Safe At This Time Assistive Devices: None Review of Systems Review of Systems: All systems reviewed & are unremarkable except as noted in HPI & below Physical Exam Physical Exam: General: no distress, overweight Head: normocephalic, atraumatic Eyes: PERRL, EOM's intact, conjunctiva non-injected, anicteric ENT: normal inspection external ears, nose, mucous membranes moist Neck: supple, trachea midline Lungs: clear, no respiratory distress, no wheezing/rhonchi/rales CV: RRR, no murmur, no pretibial edema Abd: normal BS, soft, non-tender Ext: no cyanosis, RLE: +erythema knee to ankle with warmth and tenderness to palpation, +red streaking inner thigh, +small scab to right lateral lower leg. no discharge, no ulcers noted to leg or feet/toes; distal pulses intact, sensation to light touch intact Neuro: A&O x 3, no focal deficits noted, normal affect Skin: warm, dry, as above in extremities Results & Data Results & [facility] ([facility]) Vital Signs (Past 12 Hours) Vital Signs Temp Pulse Pulse Resp BP BP Pulse Ox 12/16/21 11:34 82 14 137/75 97 12/16/21 10:38 80 16 119/71 98 12/16/21 09:33 36.6 C 105 H 18 153/86 H 96 Laboratory Results Short CBC 12/16/21 Range/Units 10:07 WBC 14.89 H (4.8-10.8) K/uL Hgb 13.0 L (14.0-18.0) g/dL Hct 39.6 L (42-52) % Plt Count 169 (130-400) K/uL BMP 12/16/21 12/16/21 10:07 10:43 Sodium 133 L Potassium 3.8 Chloride 104 Carbon Dioxide 25 BUN 11 Creatinine 1.00 Glucose 141 H Calcium 8.7 Diagnostic Findings Venous Doppler Study 12/16/21 09:53 US venous doppler LE RT HISTORY: 66 years-old Male pain . Pain and swelling of the right lower leg COMPARISON: None TECHNIQUE: Multiple real-time sonographic images of the right lower extremity deep venous structures were obtained assessing grayscale appearance, color and spectral flow. FINDINGS: Normal flow, compressibility, phasicity and augmentation. Morphologically normal-appearing right inguinal chain lymph nodes measure up to 3.3 x 2.1 x 1.4 cm, nonspecific. IMPRESSION: No sonographic evidence of deep venous thrombosis. ACT 112: Negative or not required by law. The above report was generated using voice recognition software. It may contain grammatical, syntax or spelling errors. Electronically signed by: Justin Garcia M.D. 12/16/2021 11:23 AM Supervising Physician Co-Signing Physician Notes Patient was seen and examined independently. Chart was reviewed. Case was discussed with DAFNE. I agree with assessment and plan as outlined above Patient with uncontrolled pain. Feels fine at rest but with ambulation or movement, his pain is 10/10 not relieved with acetaminophen. Will add gabapentin 100mg TID to his regimen. In addition, will order tramadol 50mg Q 6PRN for moderate pain and oxycodone 5mg Q 6PRN for severe pain.
[2021-12-16] MEDS ORDERED: CONSULT PHARMACY STA (12:49)
[2021-12-16] MEDS: SODIUM CHLORIDE 0.9% 1000ML 1,000 ML IV SCH ×2 (13:08→21:41)
[2021-12-16] MEDS ORDERED: POLYETHYLENE (MIRALAX) 17 GM PACK PO PRN (13:55)
[2021-12-16] MEDS ORDERED: GLUCOSE 10 TABS/TUBE PO PRN (13:55)
[2021-12-16] MEDS ORDERED: GLUCOSE 40% GEL 15 GM TUBE PO PRN (13:55)
[2021-12-16] MEDS ORDERED: ONDANSETRON INJ 2 MG/ML 2 ML VIAL IV PRN (13:55)
[2021-12-16] MEDS ORDERED: ACETAMINOPHEN 325 MG TAB PO PRN (13:55)
[2021-12-16] MEDS ORDERED: DEXTROSE 50% 50 ML SYRINGE IV PRN (13:55)
[2021-12-16] MEDS ORDERED: GLUCAGON FOR INJ 1 MG VIAL SQ PRN (13:55)
[2021-12-16] MEDS ORDERED: CARBOHYDRATES FOR HYPOGLYCEMIA PO PRN (13:55)
[2021-12-16] MEDS ORDERED: VANCOMYCIN CONSULT ACTIVE PRN (14:35)
[2021-12-16] MEDS ORDERED: traMADol HCL 50 MG TABLET PO PRN (16:13)
[2021-12-16] MEDS: oxyCODONE HCL IR 5 MG TAB (IMMEDIATE RELEASE) PO PRN (16:27)
[2021-12-16] MEDS: ENOXAPARIN INJ 40 MG/0.4 ML SYR SQ SCH (16:28)
[2021-12-16] MEDS: INSULIN ASPART PER UNIT SC SCH ×2 (17:37→21:37)
[2021-12-16] MEDS: PANTOprazole 40 MG TAB PO SCH (20:01)
[2021-12-16] MEDS: GABAPENTIN 100 MG CAP PO SCH (20:06)
[2021-12-17 07:16] LABS: Basophils # (auto) 0.02 K/uL (0-0.2); Basophils % (auto) 0.2 %; Eosinophils % (auto) 1.8 %; Hematocrit (blood only) 37.8 % (42-52); Hemoglobin 12.6 g/dL (14.0-18.0); Immature Granulocytes # (auto) 0.04 K/uL (0.00-0.02); Immature Granulocytes % (auto) 0.4 %; Lymphocytes # (auto) 1.81 K/uL (1.2-3.4); Lymphocytes % (auto) 16.3 %; Mean Corpuscular Hemoglobin 28.6 pg (25-34); Mean Corpuscular Hgb Conc 33.3 g/dL (32-36); Mean Corpuscular Volume 85.9 fL (80-100); Mean Platelet Volume 11.6 fL (7.4-10.4); Monocytes # (auto) 1.07 K/uL (0.11-0.59); Monocytes % (auto) 9.6 %; Neutrophils # (auto) 7.98 K/uL (1.4-6.5); Neutrophils % (auto) 71.7 %; Platelet Count 151 K/uL (130-400); RDW Standard Deviation 50.5 fL (36.4-46.3); White Blood Count 11.12 K/uL (4.8-10.8)
[2021-12-17] MEDS: oxyCODONE HCL IR 5 MG TAB (IMMEDIATE RELEASE) PO PRN ×2 (07:38→20:56)
[2021-12-17 07:41] LABS: Calcium 8.2 mg/dl (8.5-10.1); Creatinine Clr Calc Pharmacy 106.5 ml/min; Est GFR (African American) 100.8 ml/min; Potassium 3.9 mmol/L (3.5-5.1)
[2021-12-17] MEDS: INSULIN ASPART PER UNIT SC SCH ×4 (08:38→21:00)
[2021-12-17] MEDS: lisinopril 40 MG TAB PO SCH (08:39)
[2021-12-17] MEDS: ATORVASTATIN 20 MG TAB PO SCH (08:39)
[2021-12-17] MEDS: GABAPENTIN 100 MG CAP PO SCH ×3 (08:39→20:53)
[2021-12-17] MEDS: amLODIPine BESYLATE 5 MG TAB PO SCH (08:39)
[2021-12-17] MEDS: cefTRIAXone SODIUM 2,000 MG in DEXTROSE 5% 50 ML IV SCH (10:10)
[2021-12-17] MEDS: ENOXAPARIN INJ 40 MG/0.4 ML SYR SQ SCH (14:32)
--- NOTE | 2021-12-17 19:16 | Hospitalist Progress Note ---
Date of Service December 17, 2021 Assessment & Plan (1) Cellulitis of leg, right: Plan: Patient is 66-year-old male with PMH HTN, HLD, DM II, hepatitis C, right renal cell carcinoma status post renal cryoablation GERD presented to ER with complaint of fever and right leg weakness x 2 days [employer]. 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 (1) Cellulitis of leg, right: Plan: Sepsis, RLE Cellulitis - Met SIRS criteria, resolved. In ER patient afebrile, initial pulse 105 down to 82, other vitals stable, WBC: 14, negative COVID-19 NAAT. Venous Doppler right lower leg negative for DVT. In ER was given Rocephin, daptomycin, 500 mL NSS Blood cultures pending Continue with clozapine 12/17, vancomycin DC'd as MRSA screen negative Patient clinically afebrile, WBC trending down, RLE erythema improving, pain/discomfort improving per patient. CBC daily, continue with IV antibiotic. (2) Diabetes mellitus, type 2: Plan: A1c: 7.4 in 12/13/2021 Hold glimepiride, Metformin NovoLog sliding scale per protocol. Patient is very hesitant about insulin use. Depending on BSG's may need to add carb coverage and/or basal insulin Diabetic diet (3) Hypertension: Plan: Continue amlodipine, lisinopril (4) Hyperlipidemia: Plan: Continue atorvastatin (5) Renal cell carcinoma of right kidney: Plan: History of right renal cell carcinoma s/p renal cryoablation Recent follow-up MRI in 05/2021 no evidence for recurrent neoplastic disease (6) GERD (gastroesophageal reflux disease): Plan: Continue PPI (7) Tobacco use: Plan: Trying to quit, down to smoking 5 cigarettes a day Encouraged patient continued attempts at cessation Denies nicotine patch DVT Prophylaxis Lovenox SQ Follows with Dr Haider for routine care. Disposition: Pending improvement in his RLE cellulitis. Admission and Anticipated Discharge Date Admission Date: December 16, 2021 Subjective Patient seen and examined at bedside for right leg cellulitis. Patient lying in bed, on room air, NAD, no new acute events overnight. Patient reports pain in his right lower extremity under control, better than yesterday. Patient reports redness improving. Patient denies any fever/chills/chest pain/sore throat/cough/palpitations/belly pain/other review of symptoms. Patient reports eating and moving bowels okay. Physical Exam Physical Exam: GENERAL: Alert and oriented x3. NAD, on RA. HEENT: No pallor, no icterus. Pupils equal, round and reactive to light. Oral mucosa moist. NECK: No JVD, no neck masses. HEART: S1 and S2 heard. Regular rate and rhythm. No murmur, no gallop. RESPIRATORY SYSTEM: Normal AP diameter. No accessory muscle use. No wheezing, no crackles. ABDOMEN: Soft, bowel sounds present, nontender, no distention. CENTRAL NERVOUS SYSTEM: No facial droop. Speech is clear. Obeys simple commands. Moves extremities. EXTREMITIES: No edema, no erythema seen. RLE with erythema and swelling noted, very tender on palpation, warmth noted. Results & Data Results & Data ([facility]) Vital Signs (Past 12 Hours) Vital Signs Temp Pulse Resp BP Pulse Ox 12/17/21 19:02 37.0 C 79 16 116/75 97 12/17/21 15:35 36.9 C 81 18 137/78 96
[2021-12-17] MEDS: PANTOprazole 40 MG TAB PO SCH (20:53)
[2021-12-18 06:38] LABS: Hematocrit (blood only) 37.1 % (42-52); Hemoglobin 12.4 g/dL (14.0-18.0); Mean Corpuscular Hemoglobin 28.4 pg (25-34); Mean Corpuscular Hgb Conc 33.4 g/dL (32-36); Mean Corpuscular Volume 85.1 fL (80-100); Platelet Count 178 K/uL (130-400); RDW Coefficient of Variation 15.5 % (11.5-14.5); RDW Standard Deviation 48.8 fL (36.4-46.3); Red Blood Count 4.36 M/uL (4.7-6.1)
[2021-12-18] MEDS: oxyCODONE HCL IR 5 MG TAB (IMMEDIATE RELEASE) PO PRN ×3 (08:16→22:22)
[2021-12-18] MEDS: ATORVASTATIN 20 MG TAB PO SCH (08:17)
[2021-12-18] MEDS: GABAPENTIN 100 MG CAP PO SCH ×3 (08:17→19:43)
[2021-12-18] MEDS: amLODIPine BESYLATE 5 MG TAB PO SCH (08:17)
[2021-12-18] MEDS: lisinopril 40 MG TAB PO SCH (08:18)
[2021-12-18] MEDS: INSULIN ASPART PER UNIT SC SCH ×2 (08:44→12:40)
[2021-12-18] MEDS: cefTRIAXone SODIUM 2,000 MG in DEXTROSE 5% 50 ML IV SCH (10:27)
[2021-12-18] MEDS: ENOXAPARIN INJ 40 MG/0.4 ML SYR SQ SCH (14:22)
--- NOTE | 2021-12-18 15:29 | Hospitalist Progress Note ---
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 (1) Cellulitis of leg, right: Plan: Sepsis, RLE Cellulitis - Met SIRS criteria, resolved. In ER patient afebrile, initial pulse 105 down to 82, other vitals stable, WBC: 14. Venous Doppler right lower leg negative for DVT. In ER was given Rocephin, daptomycin, 500 mL NSS Blood cultures no growth Continue with ceftriaxone 12/17, vancomycin DC'd as MRSA screen negative Patient clinically afebrile, WBC trending down, RLE erythema improving, pain/discomfort improving per patient. Likely discharge home tomorrow on p.o. antibiotics. (2) Diabetes mellitus, type 2: Plan: A1c: 7.4 in 12/13/2021 Home glimepiride and Metformin initially held, NovoLog per protocol ordered however patient is hesitant about insulin and has been refusing. Will resume home glimepiride and due to increased A1c, increase Metformin to 1000mg twice daily Diabetic diet (3) Hypertension: Plan: BP controlled, continue amlodipine, lisinopril (4) Hyperlipidemia: Plan: Continue atorvastatin (5) Renal cell carcinoma of right kidney: Plan: History of right renal cell carcinoma s/p renal cryoablation Recent follow-up MRI in 05/2021 no evidence for recurrent neoplastic disease (6) GERD (gastroesophageal reflux disease): Plan: Continue PPI (7) Tobacco use: Plan: Trying to quit, down to smoking 5 cigarettes a day Encouraged patient continued attempts at cessation Denies nicotine patch DVT Prophylaxis Lovenox SQ Disposition: Likely discharge home tomorrow. Admission and Anticipated Discharge Date Admission Date: December 16, 2021 Supervising Physician Co-Signing Physician Notes Patient seen and examined at bedside for cellulitis right leg, patient on IV antibiotic, improving cellulitis. No new acute events overnight. Patient able to walk with physical therapy in the hallway. Upon examination GENERAL: Alert and oriented x3. NAD, on RA. HEENT: No pallor, no icterus. Pupils equal, round and reactive to light. Oral mucosa moist. NECK: No JVD, no neck masses. HEART: S1 and S2 heard. Regular rate and rhythm. No murmur, no gallop. RESPIRATORY SYSTEM: Normal AP diameter. No accessory muscle use. No wheezing, no crackles. ABDOMEN: Soft, bowel sounds present, nontender, no distention. CENTRAL NERVOUS SYSTEM: No facial droop. Speech is clear. Obeys simple commands. Moves extremities. EXTREMITIES: No edema, no erythema seen. RLE with erythema and swelling noted, tender on palpation, warmth noted. IMPROVING. I have seen and examined the patient and have discussed the case with the provider above. I agree with the assessment and plan as stated. Subjective Patient seen and examined. Follow-up for right lower extremity cellulitis. Patient reports much improvement in right leg swelling and redness today. Does have some ongoing pain with ambulation however that is improved as well. Denies chest pain or shortness of breath. No abdominal pain or nausea. Review of Systems Review of Systems: ROS per HPI, all other systems reviewed and negative Physical Exam Constitutional: WD/WN, vitals as above Respiratory: normal respiratory effort, lungs clear to auscultation Cardiovascular: Rate/Rhythm: regular rate and regular rhythm Vessels: normal peripheral pulses Gastrointestinal (Abdomen): Percussion/Palpation: abdomen soft; abdomen nontender Skin: RLE erythematous with +1 to +2 edema, erythema significantly improved from previously outlined area Neurologic: no focal motor deficits Psychiatric: A+Ox3, euthymic affect Results & Data Results & Data ([facility]) Vital Signs (Past 12 Hours) Vital Signs Temp Pulse Resp BP BP Pulse Ox 12/18/21 11:31 36.9 C 78 18 153/73 H 98 12/18/21 07:11 36.9 C 69 18 112/70 96 Laboratory Results Short CBC 12/18/21 Range/Units 06:07 WBC 9.90 (4.8-10.8) K/uL Hgb 12.4 L (14.0-18.0) g/dL Hct 37.1 L (42-52) % Plt Count 178 (130-400) K/uL
[2021-12-18] MEDS: GLIMEPIRIDE 2 MG TAB PO SCH (16:43)
[2021-12-18] MEDS: metFORMIN HCL 500 MG TAB PO SCH (16:43)
[2021-12-18] MEDS: PANTOprazole 40 MG TAB PO SCH (19:42)
[2021-12-19] MEDS: amLODIPine BESYLATE 5 MG TAB PO SCH (08:14)
[2021-12-19] MEDS: lisinopril 40 MG TAB PO SCH (08:14)
[2021-12-19] MEDS: ATORVASTATIN 20 MG TAB PO SCH (08:15)
[2021-12-19] MEDS: metFORMIN HCL 500 MG TAB PO SCH (08:15)
[2021-12-19] MEDS: GABAPENTIN 100 MG CAP PO SCH (08:15)
[2021-12-19] MEDS: GLIMEPIRIDE 2 MG TAB PO SCH (08:15)
[2021-12-19] MEDS: cefTRIAXone SODIUM 2,000 MG in DEXTROSE 5% 50 ML IV SCH (10:10)
[2021-12-19] MEDS: oxyCODONE HCL IR 5 MG TAB (IMMEDIATE RELEASE) PO PRN (10:15)
--- NOTE | 2021-12-19 17:06 | Discharge Summary ---
Date of Service December 19, 2021 Admission HPI Per Admitting Provider Patient is 66-year-old male with PMH HTN, HLD, DM II, hepatitis C, right renal cell carcinoma status post renal cryoablation GERD presented to ER with complaint of fever and right leg weakness x 2 days. Patient reports 2 days ago had onset of fever up to 102F along with chills. He was initially concerned he had Covid-19 so had outpatient Covid test which is still pending. Patient states later that day noted some discomfort to right lower leg and noticed had area of erythema to right lower leg approximately the size of his palm. Since has progressed with erythema progressing up the leg to his knee and today noted red streaking up his medial thigh. Reports leg is very tender and warm. He has been using Tylenol and ibuprofen for fever. Reports some nausea and had 2 episodes of vomiting. Denies history of cellulitis. Denies known injury or trauma to the area. Patient states yesterday he did scratch lower leg and had scratched off a scab. Denies history of diabetic ulcers. Denies history of [facility] Arturo. Denies ill contacts. History right TKA in 2002. Denies hematemesis, diarrhea, constipation, MCKEON, syncope, vision changes, neck pain, CP, SOB, orthopnea, palpitations, cough, sore throat, choking, otalgia, rhinorrhea, abdominal pain, paresthesias, weakness, other rashes, urinary symptoms. In ER patient afebrile, initial pulse 105 down to 82, other vitals stable, WBC: 14, negative COVID-19 NAAT. Venous Doppler right lower leg negative for DVT. In ER was given Rocephin, daptomycin, 500 mL NSS Admission Exam Per Admitting Provider General: no distress, overweight Head: normocephalic, atraumatic Eyes: PERRL, EOM's intact, conjunctiva non-injected, anicteric ENT: normal inspection external ears, nose, mucous membranes moist Neck: supple, trachea midline Lungs: clear, no respiratory distress, no wheezing/rhonchi/rales CV: RRR, no murmur, no pretibial edema Abd: normal BS, soft, non-tender Ext: no cyanosis, RLE: +erythema knee to ankle with warmth and tenderness to palpation, +red streaking inner thigh, +small scab to right lateral lower leg. no discharge, no ulcers noted to leg or feet/toes; distal pulses intact, sensation to light touch intact Neuro: A&O x 3, no focal deficits noted, normal affect Skin: warm, dry, as above in extremities Principal Diagnosis RLE cellulitis Discharge Exam Constitutional WD/WN, vitals as above Respiratory normal respiratory effort, lungs clear to auscultation Cardiovascular Rate/Rhythm: regular rate and regular rhythm Vessels: normal peripheral pulses Extremities: + edema (+1-2 edema RLE) Gastrointestinal (Abdomen) Percussion/Palpation: abdomen soft; abdomen nontender Skin Erythema still present on RLE however significantly improved from previously outlined area, mildly warm to touch-improved from yesterday Neurologic no focal motor deficits Psychiatric A+Ox3, euthymic affect Discharge Data Allergies Allergy/AdvReac Type Severity Reaction Status Date / Time adhesive Allergy Mild Rash Verified 12/16/21 11:45 cat dander Allergy Mild Watery Eye Verified 12/16/21 11:45 tree and shrub pollen Allergy Mild Watery Eye Verified 12/16/21 11:45 Ordered Studies Laboratory Results WBC 9.90 K/uL (4.8-10.8) 12/18/21 06:07 RBC 4.36 M/uL (4.7-6.1) L 12/18/21 06:07 Hgb 12.4 g/dL (14.0-18.0) L 12/18/21 06:07 Hct 37.1 % (42-52) L 12/18/21 06:07 MCV 85.1 fL (80-100) 12/18/21 06:07 MCH 28.4 pg (25-34) 12/18/21 06:07 MCHC 33.4 g/dL (32-36) 12/18/21 06:07 RDW Std Deviation 48.8 fL (36.4-46.3) H 12/18/21 06:07 RDW Coeff of Mannie 15.5 % (11.5-14.5) H 12/18/21 06:07 Plt Count 178 K/uL (130-400) 12/18/21 06:07 MPV 12.0 fL (7.4-10.4) H 12/18/21 06:07 Immature Gran % (Auto) 0.4 % 12/17/21 06:40 Neut % (Auto) 71.7 % 12/17/21 06:40 Lymph % (Auto) 16.3 % 12/17/21 06:40 Robeson % (Auto) 9.6 % 12/17/21 06:40 Eos % (Auto) 1.8 % 12/17/21 06:40 Baso % (Auto) 0.2 % 12/17/21 06:40 Neut # (Auto) 7.98 K/uL (1.4-6.5) H 12/17/21 06:40 Lymph # (Auto) 1.81 K/uL (1.2-3.4) 12/17/21 06:40 Robeson # (Auto) 1.07 K/uL (0.11-0.59) H 12/17/21 06:40 Eos # (Auto) 0.20 K/uL (0-0.5) 12/17/21 06:40 Baso # (Auto) 0.02 K/uL (0-0.2) 12/17/21 06:40 Immature Gran # (Auto) 0.04 K/uL (0.00-0.02) H 12/17/21 06:40 Sodium 136 mmol/L (136-145) 12/17/21 06:40 Potassium 3.9 mmol/L (3.5-5.1) 12/17/21 06:40 Chloride 107 mmol/L (98-107) 12/17/21 06:40 Carbon Dioxide 24 mmol/L (21-32) 12/17/21 06:40 Anion Gap 5 (3-11) 12/17/21 06:40 BUN 11 mg/dl (6-23) 12/17/21 06:40 Creatinine 0.92 mg/dl (0.6-1.4) 12/17/21 06:40 Est Cr Clr Drug Dosing 106.5 ml/min 12/17/21 06:40 Est GFR ( Amer) 100.8 ml/min 12/17/21 06:40 Est GFR (Non-Af Amer) 87.0 ml/min 12/17/21 06:40 BUN/Creatinine Ratio 12.0 (10-20) 12/17/21 06:40 Glucose 125 mg/dl (70-99(Fasting)) H 12/17/21 06:40 POC Glucose 133 mg/dl (70-99) H 12/19/21 08:01 Calcium 8.2 mg/dl (8.5-10.1) L 12/17/21 06:40 Nasal Screen MRSA (PCR) Negative (Negative) 12/16/21 13:11 SARS-CoV-2, RNA, NAAT NEGATIVE (NEGATIVE) 12/16/21 10:40 Impressions Venous Doppler Study 12/16/21 09:53 US venous doppler LE RT HISTORY: 66 years-old Male pain . Pain and swelling of the right lower leg COMPARISON: None TECHNIQUE: Multiple real-time sonographic images of the right lower extremity deep venous structures were obtained assessing grayscale appearance, color and spectral flow. FINDINGS: Normal flow, compressibility, phasicity and augmentation. Morphologically normal-appearing right inguinal chain lymph nodes measure up to 3.3 x 2.1 x 1.4 cm, nonspecific. IMPRESSION: No sonographic evidence of deep venous thrombosis. ACT 112: Negative or not required by law. The above report was generated using voice recognition software. It may contain grammatical, syntax or spelling errors. Electronically signed by: Justin Garcia M.D. 12/16/2021 11:23 AM Hospital Course (1) Cellulitis of leg, right: Patient is 66-year-old male with PMH HTN, HLD, DM II, hepatitis C, right renal cell carcinoma status post renal cryoablation GERD presented to ER with complaint of fever and right leg weakness x 2 days [employer]. Patient reports 2 days ago ([employer]ER) had onset of fever up to 102F along with chills then noted RLE erythema which has increased. (1) Cellulitis of leg, right: Plan: Sepsis, RLE Cellulitis - Met SIRS criteria, resolved. In ER patient afebrile, initial pulse 105 down to 82, other vitals stable, WBC: 14. Venous Doppler right lower leg negative for DVT. In ER was given Rocephin, daptomycin, 500 mL NSS Blood cultures no growth Continue with ceftriaxone 12/17, vancomycin DC'd as MRSA screen negative Patient afebrile, WBC trending down, RLE erythema improving, pain/discomfort improving per patient. Discharge home today on p.o. Augmentin to complete a 14-day course. (2) Diabetes mellitus, type 2: Plan: A1c: 7.4 in 12/13/2021 Home glimepiride and Metformin initially held, NovoLog per protocol ordered however patient is hesitant about insulin and has been refusing. Will resume home glimepiride and due to increased A1c, increase Metformin to 1000mg twice daily Diabetic diet (3) Hypertension: Plan: BP controlled, continue amlodipine, lisinopril (4) Hyperlipidemia: Plan: Continue atorvastatin (5) Renal cell carcinoma of right kidney: Plan: History of right renal cell carcinoma s/p renal cryoablation Recent follow-up MRI in 05/2021 no evidence for recurrent neoplastic disease (6) GERD (gastroesophageal reflux disease): Plan: Continue PPI (7) Tobacco use: Plan: Trying to quit, down to smoking 5 cigarettes a day Encouraged patient continued attempts at cessation Denies nicotine patch Total Time Total Time Spent Total Time Spent (In Minutes): 35 Discharge Plan Discharge Items Patient Disposition: Home - Self-Care Reason For Visit: Right Leg Pain, Swelling, Fever Discharge Diagnosis: Right Leg Cellulitis Activity: As commented below Activity Comment: as tolerated Driving/Machine Use: Do not drive until your follow up with Dr. Haider Non-emergency contact: Primary Care Provider Call non-emergency contact if: you have any medication questions, your symptoms worsen, your pain is not controlled and you have a fever Follow-up/Referrals: Bill Haider MD [Primary Care Provider] - (Date & Time 12/24/2021 9:00 AM Provider Bill Haider MD Department [facility] ) Diet: Carb Consistent or DM2 and Heart Healthy Addtl Attending Provider Instructions: You came to the hospital for evaluation of right leg pain, swelling, redness. You were diagnosed with cellulitis of your right leg. You received IV antibiotics while in the hospital and will be discharged on an oral antibiotic, Augmentin, for an additional 11 days. It is also recommended that you take a probiotic while you are taking the antibiotic. You are prescribed Percocet (oxycodone/acetaminophen) for pain. Use this as needed and take with caution. Your hemoglobin A1c (diabetic number) was checked and found to be elevated at 7.4. Increase your Metformin to 1000 mg twice daily. A follow-up appointment has been made for you with your PCP. Please keep this appointment as scheduled. It was a pleasure taking care of you. If you need to reach a member of the [facility] Hospitalist team at [facility], please call [phone]. [facility] Pending Studies at Discharge: No Stand-Alone Forms: My [facility] Health, Opioid Pain Management, Smoking Cessation Medications and DC Order Prescriptions: New amoxicillin-pot clavulanate 875-125 mg tablet 1 tab PO BID Qty: 22 RF: 0 Probiotic 3 billion cell capsule 3,000 mmu cells PO DAILY Qty: 11 RF: 0 oxycodone-acetaminophen [Percocet] 5-325 mg tablet 1 tab PO Q8H PRN (Reason: pain) Qty: 10 RF: 0 Continued atorvastatin 20 mg Tablet 20 mg PO QAM RF: 0 glimepiride 2 mg Tablet 2 mg PO QAM RF: 0 lisinopril 40 mg Tablet 40 mg PO QAM RF: 0 triamcinolone acetonide 0.1 % Cream 1 applic TOPICAL BID PRN (Reason: Rash) RF: 0 amlodipine 10 mg tablet 10 mg PO DAILY RF: 0 pantoprazole 40 mg tablet,delayed release (DR/EC) 40 mg PO HS RF: 0 Changed metformin 500 mg Tablet 1,000 mg PO BID Qty: 0 RF: 0 Discharge Orders: Discharge Order (Routine); Ordered 12/19/21 Ordered By: [place]/Other Patient Handouts: Cellulitis Dc Admission Data Admit Date/Time: 12/16/21 12:10 Attending Provider: Alan Rasmussen Admit Provider: Cristobal Lancaster Primary Care Provider: Bill Haider Other Providers: Cristobal Lancaster Other Interventions: Discharge Summary Assessment (RN) Last Done: 12/19/21 11:01 Supervising Physician Co-Signing Physician Notes Patient seen and examined at bedside for cellulitis right leg, patient on IV antibiotic, improving cellulitis. No new acute events overnight. Patient able to walk with some pain. Patient advised to apply firm compression with roll bandage, made aware if joint is involved/excruciating pain in the joint to come back to ER immediately, advised to follow-up with the PCP prior to completion of his antibiotic to decide on further management of his lower extremity cellulitis. His IV antibiotic will be transitioned to Augmentin to complete 14 days of total therapy. Upon examination GENERAL: Alert and oriented x3. NAD, on RA. HEENT: No pallor, no icterus. Pupils equal, round and reactive to light. Oral mucosa moist. NECK: No JVD, no neck masses. HEART: S1 and S2 heard. Regular rate and rhythm. No murmur, no gallop. RESPIRATORY SYSTEM: Normal AP diameter. No accessory muscle use. No wheezing, no crackles. ABDOMEN: Soft, bowel sounds present, nontender, no distention. CENTRAL NERVOUS SYSTEM: No facial droop. Speech is clear. Obeys simple commands. Moves extremities. EXTREMITIES: No edema, no erythema seen. RLE with erythema and swelling noted, tender on palpation, warmth noted. IMPROVING. I have seen and examined the patient and have discussed the case with the provider above. I agree with the assessment and plan as stated.
== END 2021-12-19 12:06 | disposition home or self-care (01) | DRG 872 ==
LOC: ED 09:30 → 3N 12:10 → SUATTDRO 12:10 → 3N 13:40